=== PATIENT | female | born 1955 | race Caucasian/White ===

== ENCOUNTER 2020-04-26 12:12 | Emergency (ER) | payer OTHER | END 2020-04-26 15:22 | disposition home or self-care (01) | LOC: JVIRT 12:12 | DX: Z20.828 Contact with and (suspected) exposure to other viral communicable diseases (principal) | CPT/HCPCS: C9803; Q3014-GT; U0003 ==

== ENCOUNTER 2020-05-13 21:06 | Emergency (ER) | payer OTHER ==
[2020-05-13 21:16] VITALS: TEMP 98; BMI 25.9
[2020-05-13 22:22] LABS: BASO % 0.7 % (0-2.0); EOS % 0.2 % (0-4.5); HEMATOCRIT 42.5 % (32.4-45.2); HEMOGLOBIN 14.5 GM/dL (10.7-15.3); LYMPH % 34.4 % (8-40); MEAN CELL VOLUME 85.3 fl (80-96); MEAN PLT VOLUME 8.9 fl (7.5-11.1); NEUT % 51.7 % (42.8-82.8); PLATELET COUNT 190 K/MM3 (134-434); RBC 4.99 M/mm3 (3.60-5.2); RDW 13.5 % (11.6-15.6); WHITE BLOOD COUNT 3.2 K/mm3 (4.0-10.0)
[2020-05-13 22:28] LABS: INR 0.99 (0.83-1.09); PROTHROMBIN TIME (PATIENT) 12.2 SEC (9.7-13.0)
[2020-05-13 22:31] LABS: ACTIVATED PTT 31.5 SECONDS (25.2-36.5)
[2020-05-13] MEDS ORDERED: CEFTRIAXONE 1 GM in DEXTROSE 5%-WATER - 50 ML IVPB ONE (22:39)
[2020-05-13] MEDS ORDERED: AZITHROMYCIN IVPB 500 MG in DEXTROSE 5%-WATER - 250 ML IVPB ONE (22:39)
[2020-05-13 22:42] LABS: CHLORIDE 105 mmol/L (98-107); SODIUM 131 mmol/L (136-145)
[2020-05-13 22:43] LABS: CALCIUM 8.4 mg/dL (8.5-10.1)
[2020-05-13 22:44] LABS: ALBUMIN 3.5 g/dl (3.4-5.0); BLOOD UREA NITROGEN 14.5 mg/dL (7-18); CO2 25 mmol/L (21-32); GLUCOSE,RANDOM 121 mg/dL (74-106)
[2020-05-13 22:47] LABS: CREATININE 0.6 mg/dL (0.55-1.3); SGOT/AST 98 U/L (15-37)
[2020-05-13 22:49] LABS: BILIRUBIN,TOTAL 0.5 mg/dL (0.2-1); TOT PROT 7.6 g/dl (6.4-8.2)
[2020-05-13 22:50] LABS: ALK PHOS 63 U/L (45-117); N-TERMINAL BNP 201.8 pg/ml (5-125)
[2020-05-13 22:57] LABS: ANION GAP 1 MMOL/L (8-16); SGPT/ALT 32 U/L (13-61)
[2020-05-13] MEDS ORDERED: AZITHROMYCIN IVPB 500 MG/250 ML BAG IVPB ONE (23:14)
[2020-05-13 23:34] VITALS: BP 137/79; PULSE 79
[2020-05-14] MEDS ORDERED: CEFTRIAXONE 1 GM/50 ML BAG ONE (00:23)
== END 2020-05-14 00:39 | disposition home or self-care (01) ==
LOC: JER 21:06
DX: J18.9 Pneumonia, unspecified organism (principal)
CPT/HCPCS: 36415; 71045-TC-FY; 80053; 83880; 84443; 84484; 85025; 85379; 85610; 85730; 87040; 87804; 93005; 93010; 99285-25; C9803; U0003

== ENCOUNTER 2020-05-16 12:02 | Emergency (ER) | payer OTHER ==
[2020-05-16 12:13] VITALS: BP 159/76; PULSE 85; TEMP 98.3
[2020-05-16] MEDS ORDERED: BAMLANIVIMAB 700 MG in SODIUM CHLORIDE 180 ML IVPB ONE (12:43)
[2020-05-16 13:31] LABS: BASO % 0.3 % (0-2.0); EOS % 0.8 % (0-4.5); HEMATOCRIT 42.1 % (32.4-45.2); HEMOGLOBIN 14.5 GM/dL (10.7-15.3); LYMPH % 32.2 % (8-40); MCHC 34.5 g/dl (32.0-36.0); MEAN CELL VOLUME 84.1 fl (80-96); MEAN PLT VOLUME 8.2 fl (7.5-11.1); MONO % 9.2 % (3.8-10.2); NEUT % 57.5 % (42.8-82.8); PLATELET COUNT 261 K/MM3 (134-434); RBC 5.01 M/mm3 (3.60-5.2); RDW 12.8 % (11.6-15.6); WHITE BLOOD COUNT 3.5 K/mm3 (4.0-10.0)
[2020-05-16 13:50] LABS: POTASSIUM 3.9 mmol/L (3.5-5.1)
[2020-05-16 14:14] LABS: ALBUMIN 3.8 g/dl (3.4-5.0); BLOOD UREA NITROGEN 20.1 mg/dL (7-18); CALCIUM 9.5 mg/dL (8.5-10.1)
[2020-05-16 14:17] LABS: CREATININE 0.5 mg/dL (0.55-1.3)
[2020-05-16 14:19] LABS: BILIRUBIN,TOTAL 0.6 mg/dL (0.2-1); TOT PROT 6.8 g/dl (6.4-8.2)
== END 2020-05-16 16:42 | disposition home or self-care (01) ==
LOC: JCOVINFU 12:02
DX: Z11.52 Encounter for screening for COVID-19 (principal)
CPT/HCPCS: 36415; 80053; 85025; 99284-25; M0239; Q0239